=== PATIENT | female | born 1940 | race Caucasian/White ===

== ENCOUNTER 2017-08-25 06:38 | Day surgery (SDC) | payer MEDICARE ==
[~2017-08-25] VITALS: Ht 172.7 cm; Wt 95.2 kg
[~2017-08-25 06:38] MED LIST: AMLO5 PO; ASPI81CH PO; Bactrim 400-801 EACH PO; FURO20 PO; LOSARTAN-HCTZ1 EAC1 PO; LOVA40 PO; METF850 PO; OMEPRAZOLE MAGN20 MG PO; Zofran Odt4 MG SL; [UNRECOGNIZED DRUG - OTHER] PO
== END 2017-08-25 22:46 | disposition home or self-care (01) ==
LOC: ORSCMMR 06:38 → ORD 08:15 → ORSCMMR 22:46
PROVIDERS: Surgery
PROC: BF031ZZ Plain Radiography of Gallbladder and Bile Ducts using Low Osmolar Contrast (ICD-10-PCS; principal; 2017-08-25 08:15)
PROC: 0FT44ZZ Resection of Gallbladder, Percutaneous Endoscopic Approach (ICD-10-PCS; principal; 2017-08-25 08:15)
DX: K80.11 Calculus of gallbladder with chronic cholecystitis with obstruction (principal); I10 Essential (primary) hypertension; E11.9 Type 2 diabetes mellitus without complications; E66.9 Obesity, unspecified; Z68.31 Body mass index [BMI] 31.0-31.9, adult; Z79.899 Other long term (current) drug therapy
CPT/HCPCS: 74300; 82947; 88304; C1729; J0690; J2250; J2405; J2710; J3010; J7030; J7120

== ENCOUNTER 2019-09-27 09:04 | Day surgery (SDC) | payer MEDICARE ==
[~2019-09-27] VITALS: Ht 172.7 cm; Wt 92.7 kg
[~2019-09-27 09:04] MED LIST changes: +ASCO500 PO; +CALCIUM 600 +1 EA11 PO; +CENTRUM SILVER1 EAC2 PO; +Coq-1030 MG PO; +HYDROCHLOROTHIA25 MG PO; +LOSARTAN POTAS100 M1 PO; +Loratadine10 MG PO; +METF500 PO; +MULTIVITAMIN-Z1 EACH PO; +NAPR220 PO; +OMEGA 3 1,0001 EACH PO; +OMEP20ER PO; +SOLI5 PO; +Vitamin D2000 UNIT PO
--- NOTE | 2019-09-27 09:40 | NUR ---
09/27/19 0940 CHELITA KEEN ONE ATTEMPT BY MILA IN RH VALVE ONE ATTEMPT BY MILA IN RFA MISSED ONE SUCCESSFUL BY RN IN RAC PT TOW
== END 2019-09-27 11:16 | disposition home or self-care (01) ==
LOC: ORSCSDS 09:04
PROVIDERS: Internal Medicine Gastroenterology
PROC: 0DBK8ZX Excision of Ascending Colon, Via Natural or Artificial Opening Endoscopic, Diagnostic (ICD-10-PCS; principal; 2019-09-27 10:30)
DX: Z12.11 Encounter for screening for malignant neoplasm of colon (principal); D12.2 Benign neoplasm of ascending colon; K57.30 Diverticulosis of large intestine without perforation or abscess without bleeding; E11.9 Type 2 diabetes mellitus without complications; K21.9 Gastro-esophageal reflux disease without esophagitis; K76.0 Fatty (change of) liver, not elsewhere classified; E66.9 Obesity, unspecified; Z68.31 Body mass index [BMI] 31.0-31.9, adult; I10 Essential (primary) hypertension; Z79.84 Long term (current) use of oral hypoglycemic drugs; Z79.899 Other long term (current) drug therapy
CPT/HCPCS: 82947; 88305; J2704; J7120

== ENCOUNTER 2020-07-09 18:57 | Emergency (ER) | payer OTHER ==
[~2020-07-09] VITALS: Ht 172.7 cm; Wt 90.7 kg
[2020-07-09] MEDS ORDERED: CEFP200 PO (19:46)
== END 2020-07-09 20:11 | disposition home or self-care (01) ==
LOC: ER 18:57
DX: S61.211A Laceration without foreign body of left index finger without damage to nail, initial encounter (principal); Z88.5 Allergy status to narcotic agent; Z88.8 Allergy status to other drugs, medicaments and biological substances; Z79.84 Long term (current) use of oral hypoglycemic drugs; Z79.899 Other long term (current) drug therapy; W45.8XXA Other foreign body or object entering through skin, initial encounter
CPT/HCPCS: 12001; 90471; 90714; 99282-25

== ENCOUNTER 2024-10-23 10:19 | Emergency (ER) | payer OTHER ==
[~2024-10-23] VITALS: Ht 172.7 cm; Wt 83.9 kg
[~2024-10-23 10:19] MED LIST changes: +CEFP200 PO
[2024-10-23] MEDS ORDERED: Lidocaine 4% 1 Patch TOP ONE (13:10)
[2024-10-23] MEDS ORDERED: OxyCODONE 5 mg/Acetamin 325 mg TABLET PO ONE (13:10)
[2024-10-23] MEDS ORDERED: LIDO700A20 TOP (13:42)
[2024-10-23] MEDS ORDERED: ONDA4ODT MM (13:42)
[2024-10-23] MEDS ORDERED: Percocet 5-3251 EACH PO (13:42)
[2024-10-23 14:45] VITALS: BP 179/72
== END 2024-10-23 14:56 | disposition home or self-care (01) ==
LOC: ER 10:19
DX: S32.512A Fracture of superior rim of left pubis, initial encounter for closed fracture (principal); S32.592A Other specified fracture of left pubis, initial encounter for closed fracture; S40.211A Abrasion of right shoulder, initial encounter; S50.312A Abrasion of left elbow, initial encounter; I10 Essential (primary) hypertension; Z88.5 Allergy status to narcotic agent; Z88.8 Allergy status to other drugs, medicaments and biological substances; Z79.82 Long term (current) use of aspirin; Z79.4 Long term (current) use of insulin; Z79.899 Other long term (current) drug therapy; W01.0XXA Fall on same level from slipping, tripping and stumbling without subsequent striking against object, initial encounter
CPT/HCPCS: 73030; 73502; 90471; 90715; 99284-25; A9270

== ENCOUNTER → 2025-02-10 | Outpatient (CLI) | payer OTHER ==
[~2025-02-10] MED LIST changes: +LIDO700A20 TOP; +ONDA4ODT MM; +Percocet 5-3251 EACH PO
[2025-02-10 17:49] LABS: Creatinine, Urine Random 65.7 mg/dL (27.00-270.00); Microalbumin, Random Urine 7.99 mg/L (0.000-20.000)
== END ==
LOC: LAB SHORT 11:05 → LAB 11:05
PROVIDERS: Family Medicine
DX: E11.69 Type 2 diabetes mellitus with other specified complication (principal); E11.59 Type 2 diabetes mellitus with other circulatory complications
CPT/HCPCS: 82043; 82570